=== PATIENT | female | born 1980 | race Caucasian/White ===

== ENCOUNTER 2018-03-25 14:09 | Emergency (ER) | payer BC, SELFPAY ==
[2018-03-25 14:16] VITALS: BP 155/106; PULSE 82; RESP 18; TEMP 37.3; O2SAT 97
--- NOTE | 2018-03-25 15:06 | W.ED.GENAD ---
Discharge Plan Disposition Patient Disposition: HOME Condition: Good Discharge Details Chief Complaint: Orthopedic Clinical Impression: Biceps tendinitis Primary Care Provider: Mayuri Zimmer ED Provider: Marianna Wylie Home Meds and New Rx's Prescriptions: New ibuprofen 600 mg tablet 600 mg PO QID PRN (Reason: pain) Qty: 20 RF: 0 Discharge Instructions Instructions: Tendinitis (ED) Additional Instructions: Encourage hydration. Tylenol and/or ibuprofen as needed for discomfort. You may try Lidoderm or Salonpas patches for discomfort. I have asked our child care group leader to help facilitate follow-up with primary care. Please call orthopedics tomorrow to schedule follow-up appointment, number listed below. Referral for physical therapy as attached, please call to schedule appointment If you develop fever/chills, altered sensatio or the new/worsening symptoms please seek care urgently once again Stand Alone Forms: Physical Therapy Referral, Work Release Referrals: Pancho Osborne MD [ [facility] STAFF PHYSICIAN] - ([phone]) Discharge Data Discharge Date/Time-TO BE ENTERED AT DEPARTURE: 03/25/18 15:27 Medical Decision Making Patient is a 38-year-old right-hand dominant female presenting today with chief complaint of recurrent right shoulder pain. She reports that she initially injured her shoulder approximately 1 year ago. Unclear diagnosis from that time. Denies any trauma. Denies any recent trauma. States that over the past few days she has had worsening severity of her discomfort and symptoms. Indicates the anterior aspect of the shoulder radiating down the right biceps is area of maximal discomfort. She reports she does have very frequent repetitive motions through her work. States that after counting a large amount of money last week at work, the pain is greatly exacerbated. She denies any altered sensation. Has not noted any weakness. Is preferring to hold the shoulder in a abducted position and try to not move the extremity. On exam, patient is full range of motion of the shoulder. Pain is primarily over the biceps tendon with a positive Speed's exam. No indication of rotator cuff involvement. No pain over the AC joint or clavicle. Patient is full range of motion of the elbow, wrist, hand. 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 No rash. Patient I discussed diagnosis of biceps tendinitis. I encouraged gentle range of motion of the shoulder to help prevent adhesive capsulitis. Advised heat or ice to affected area to help with discomfort. We will Place Lidoderm patch and give ibuprofen. Will prescribe ibuprofen that she should take regularly to help with the inflammatory reaction. Advised that she call orthopedics for follow-up. We will also refer her to physical therapy. Patient is new to the area and does not have primary care, I have asked her care according to help facilitate follow-up with primary care physician. We discussed new/worsening symptoms when to seek care urgently once again. All of her questions and concerns were addressed and she is agreement this plan peer HPI General Mode of arrival: ambulatory. Date/Time Provider Initiated Documentation: 03/25/18 14:31. Limitations to Documentation: no limitations. Information obtained by: patient. History of Present Illness 38 year old F presents to the emergency department with the chief complaint of right shoulder pain, described as moderate, with intensity rated at 6. Quality is described as burning, and is localized to the right and upper extremity. Patient reports no radiation. Patient started experiencing this day(s) and it has been constant. Immobilization improves symptom(s), Movement worsens symptoms . Patient notes denies chest pain, cough, fever/chills, rash and shortness of breath. Patient did receive the following treatments prior to arrival, other (tylenol) Related Data Home Medications Medication Instructions Recorded Confirmed ibuprofen 600 mg PO QID PRN #20 tab 03/25/18 Previous Rx's Medication Instructions Recorded ibuprofen 600 mg PO QID PRN #20 tab 03/25/18 General Stated Complaint: Orthopedic ROJELIO: 4 Review of Systems Constitutional Reports as per HPI, Denies chills, Denies fever(s), Denies headache(s) and Denies weakness ENT Denies headache(s) Cardiovascular Reports as per HPI Respiratory Reports as per HPI and Denies cough Musculoskeletal Reports as per HPI and Denies tingling Integumentary/Breasts Reports as per HPI, Denies rash and Denies wounds Neurologic Denies headache(s), Denies tingling and Denies weakness [facility] Social History Smoking/Tobacco Use Status: Current every day Exam Const General: cooperative, healthy appearing, comfortable, no acute distress, well developed and well groomed Nutritional Appearance: average body habitus and well nourished Orientation: alert and awake Resp Effort & Inspection: normal respiratory effort, able to speak in complete sentences and no respiratory distress Cardio Rate: regular rate Rhythm: regular rhythm Skin General skin exam: no rashes or lesions noted Lesions: no lesions Rashes: no rashes Trauma: no lacerations or abrasions Neuro General: alert and awake Cognition: normal cognition Speech: speech normal Gait: normal gait Motor: muscle tone normal throughout Sensory Exam: no sensory deficits noted Extrem General: full ROM, normal capillary refill, no joint enlargement and normal gait Right upper extremity: full ROM, normal capillary refill, no joint enlargement, shoulder/upper arm Details: tenderness Location: other (anteriorly over biceps tendon), normal ROM and other (positive speeks. Negative Neer and Hawkin); no swelling, no crepitus, no deformity and no unusual warmth, elbow/forearm Details: normal to inspection, wrist Details: normal to inspection and hand Details: normal to inspection Psych Appearance: grossly normal and well kempt Mental Status: mental status grossly normal Speech and Movement: speech and movement normal Course Vital Signs Temperature 37.3 C 03/25/18 14:16 Pulse 82 03/25/18 14:16 Respiratory Rate 18 03/25/18 14:16 Blood Pressure 155/106 H 03/25/18 14:16 Pulse Oximetry 97 03/25/18 14:16 Temperature 37.3 C 03/25/18 14:16 Pulse 82 03/25/18 14:16 Respiratory Rate 18 03/25/18 14:16 Respiratory Effort Non-Labored 03/25/18 14:21 Blood Pressure 155/106 H 03/25/18 14:16 Blood Pressure Position Sitting 03/25/18 14:16 Pulse Oximetry 97 03/25/18 14:16 Oxygen Delivery Method Room Air 03/25/18 14:16 Oxygen Flow Rate 0 03/25/18 14:16 Pain Level 6 03/25/18 14:16
--- NOTE | 2018-03-25 15:09 | ED.GENADUL_ITS ---
Discharge Plan Disposition Patient Disposition: HOME Condition: Good Discharge Details Chief Complaint: Orthopedic Clinical Impression: Biceps tendinitis Primary Care Provider: Mayuri Zimmer ED Provider: Marianna Wylie Home Meds and New Rx's Prescriptions: New ibuprofen 600 mg tablet 600 mg PO QID PRN (Reason: pain) Qty: 20 RF: 0 Discharge Instructions Instructions: Tendinitis (ED) Additional Instructions: Encourage hydration. Tylenol and/or ibuprofen as needed for discomfort. You may try Lidoderm or Salonpas patches for discomfort. I have asked our anesthesiologist and critical care to help facilitate follow-up with primary care. Please call orthopedics tomorrow to schedule follow-up appointment, number listed below. Referral for physical therapy as attached, please call to schedule appointment If you develop fever/chills, altered sensatio or the new/worsening symptoms please seek care urgently once again Stand Alone Forms: Physical Therapy Referral, Work Release Referrals: Pancho Osborne MD [ [facility] STAFF PHYSICIAN] - ([phone]) Discharge Data Discharge Date/Time-TO BE ENTERED AT DEPARTURE: 03/25/18 15:27 Medical Decision Making Patient is a 38-year-old right-hand dominant female presenting today with chief complaint of recurrent right shoulder pain. She reports that she initially injured her shoulder approximately 1 year ago. Unclear diagnosis from that time. Denies any trauma. Denies any recent trauma. States that over the past few days she has had worsening severity of her discomfort and symptoms. Indicates the anterior aspect of the shoulder radiating down the right biceps is area of maximal discomfort. She reports she does have very frequent repetitive motions through her work. States that after counting a large amount of money last week at work, the pain is greatly exacerbated. She denies any altered sensation. Has not noted any weakness. Is preferring to hold the shoulder in a abducted position and try to not move the extremity. On exam, patient is full range of motion of the shoulder. Pain is primarily over the biceps tendon with a positive Speed's exam. No indication of rotator cuff involvement. No pain over the AC joint or clavicle. Patient is full range of motion of the elbow, wrist, hand. 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 No rash. Patient I discussed diagnosis of biceps tendinitis. I encouraged gentle range of motion of the shoulder to help prevent adhesive capsulitis. Advised heat or ice to affected area to help with discomfort. We will Place Lidoderm patch and give ibuprofen. Will prescribe ibuprofen that she should take regularly to help with the inflammatory reaction. Advised that she call orthopedics for follow- up. We will also refer her to physical therapy. Patient is new to the area and does not have primary care, I have asked her care according to help facilitate follow-up with primary care physician. We discussed new/worsening symptoms when to seek care urgently once again. All of her questions and concerns were addressed and she is agreement this plan peer HPI General Mode of arrival: ambulatory . Date/Time Provider Initiated Documentation: 03/25/18 14:31 . Limitations to Documentation: no limitations . Information obtained by: patient . History of Present Illness 38 year old F presents to the emergency department with the chief complaint of right shoulder pain, described as moderate, with intensity rated at 6. Quality is described as burning, and is localized to the right and upper extremity. Patient reports no radiation. Patient started experiencing this day(s) and it has been constant. Immobilization improves symptom(s), Movement worsens symptoms . Patient notes denies chest pain, cough, fever/chills, rash and shortness of breath. Patient did receive the following treatments prior to arrival, other (tylenol) Related Data Home Medications Medication Instructions Recorded Confirmed ibuprofen 600 mg PO QID PRN #20 tab 03/25/18 Previous Rx's Medication Instructions Recorded ibuprofen 600 mg PO QID PRN #20 tab 03/25/18 General Stated Complaint: Orthopedic ROJELIO: 4 Review of Systems Constitutional Reports as per HPI, Denies chills, Denies fever(s), Denies headache(s) and Denies weakness ENT Denies headache(s) Cardiovascular Reports as per HPI Respiratory Reports as per HPI and Denies cough Musculoskeletal Reports as per HPI and Denies tingling Integumentary/Breasts Reports as per HPI, Denies rash and Denies wounds Neurologic Denies headache(s), Denies tingling and Denies weakness [facility] Social History Smoking/Tobacco Use Status: Current every day Exam Const General: cooperative, healthy appearing, comfortable, no acute distress, well developed and well groomed Nutritional Appearance: average body habitus and well nourished Orientation: alert and awake Resp Effort & Inspection: normal respiratory effort, able to speak in complete sentences and no respiratory distress Cardio Rate: regular rate Rhythm: regular rhythm Skin General skin exam: no rashes or lesions noted Lesions: no lesions Rashes: no rashes Trauma: no lacerations or abrasions Neuro General: alert and awake Cognition: normal cognition Speech: speech normal Gait: normal gait Motor: muscle tone normal throughout Sensory Exam: no sensory deficits noted Extrem General: full ROM, normal capillary refill, no joint enlargement and normal gait Right upper extremity: full ROM, normal capillary refill, no joint enlargement, shoulder/upper arm Details: tenderness Location: other (anteriorly over biceps tendon), normal ROM and other (positive speeks. Negative Neer and Hawkin); no swelling, no crepitus, no deformity and no unusual warmth, elbow/forearm Details: normal to inspection, wrist Details: normal to inspection and hand Details: normal to inspection Psych Appearance: grossly normal and well kempt Mental Status: mental status grossly normal Speech and Movement: speech and movement normal Course Vital Signs Temperature 37.3 C 03/25/18 14:16 Pulse 82 03/25/18 14:16 Respiratory Rate 18 03/25/18 14:16 Blood Pressure 155/106 H 03/25/18 14:16 Pulse Oximetry 97 03/25/18 14:16 Temperature 37.3 C 03/25/18 14:16 Pulse 82 03/25/18 14:16 Respiratory Rate 18 03/25/18 14:16 Respiratory Effort Non-Labored 03/25/18 14:21 Blood Pressure 155/106 H 03/25/18 14:16 Blood Pressure Position Sitting 03/25/18 14:16 Pulse Oximetry 97 03/25/18 14:16 Oxygen Delivery Method Room Air 03/25/18 14:16 Oxygen Flow Rate 0 03/25/18 14:16 Pain Level 6 03/25/18 14:16
[2018-03-25] MEDS: Ibuprofen 600 MG TAB PO (15:16)
[2018-03-25] MEDS: Lidocaine 5% Patch 1 PATCH (15:16)
[2018-03-25 15:23] VITALS: BP 155/106; PULSE 82; RESP 18; TEMP 37.3; O2SAT 97
== END 2018-03-25 15:27 | disposition home or self-care (01) ==
PROVIDERS: Emergency Provider Physician Assistant; PCP Nurse Practitioner
DX: M75.21 Bicipital tendinitis, right shoulder (principal)
CPT/HCPCS: 99283

== ENCOUNTER 2018-11-22 13:49 | Outpatient (CLI) | payer BC, SELFPAY ==
[2018-11-22 14:33] LABS: Abs Immature Grans 0.04 k/cumm (0.0-0.09); Absolute Basophil Count 0.02 k/cumm (0.0-0.2); Absolute Eosinophil Count 0.14 k/cumm (0.0-0.7); Absolute Lymphocyte Count 2.52 k/cumm (1.2-3.4); Absolute Monocyte Count 0.63 k/cumm (0.11-0.7); Absolute Neutrophil Count 7.04 k/cumm (1.2-6.7); Basophils % 0.2; Eosinophils % 1.3; HCT 42.6 % (36.0-46.0); HGB 15.1 g/dL (12.0-15.5); Immature Grans % 0.4; Lymphocytes % 24.3; Mean Corp. HGB Concentration 35.4 g/dL (32.0-36.0); Mean Corpuscular Hemoglobin 32.3 pg (27.0-33.0); Mean Corpuscular Volume 91.2 fL (80-95); Mean Platelet Volume 8.9 fL (8.0-11.0); Monocytes % 6.1; Neutrophils % 67.7; Platelet Count 381 x1000/uL (130-400); RBC 4.67 m/cumm (4.00-5.20); RBC Distribution Width 11.9 % (11.7-14.6); White Blood Cell Count 10.39 k/cumm (4.4-10.8)
[2018-11-22 15:32] LABS: *AMPHETAMINES SCREEN URINE Negative (Negative); *BARBITURATES SCREEN URINE Negative (Negative); *BENZODIAZEPINES SCREEN URINE Negative (Negative); Cannabinoids THC POSITIVE (Negative); Cocaine Screen,Urine Negative (Negative); METHADONE URINE SCREEN Negative (Negative); OPIATES URINE SCREEN Negative (Negative)
[2018-11-22 15:39] LABS: ALT 26 U/L (12-78); AST 16 U/L (15-37); Albumin 3.7 g/dL (3.4-5.0); Alkaline Phosphatase 59 U/L (46-116); Anion Gap 12.5 mmol/L (3-11); BUN 7 mg/dL (7-18); Bilirubin, Total 0.5 mg/dL (0.2-1.0); CO2 23.5 mmol/L (21.0-32.0); CREATININE 0.66 mg/dL (0.55-1.02); Calcium 8.9 mg/dL (8.5-10.1); Chloride 104 mmol/L (98-107); Glucose 75 mg/dL (70-100); Potassium 3.7 mmol/L (3.5-5.1); Sodium 140 mmol/L (136-145); TSH (W/Ref FT4) 3.01 uIU/mL (0.36-3.74); Total Protein 6.8 g/dL (6.4-8.2)
[2018-11-22 15:39] LABS: Tricyclic Antidepressants Negative (Negative)
[2018-11-23 10:43] LABS: HIV-1/2 Ag & Ab Screen Negative (NEGAT); Hepatitis C Ab w Rflx HCV PCR Negative (NEGAT)
[2018-11-23 11:32] LABS: Syphilis Serology (RPR) Negative (Negative); Varicella IgG Antibody Positive
[2018-11-23 12:49] LABS: Hepatitis B Surface Ag Negative (NEGAT)
[2018-11-23 13:43] LABS: Rubella IgG Ab (UVM) Equivocal
== END 2018-11-22 14:09 ==
PROVIDERS: PCP Nurse Practitioner; Visit Provider Obstetrics & Gynecology
DX: O10.911 Unspecified pre-existing hypertension complicating pregnancy, first trimester
CPT/HCPCS: 36415; 80053; 80055; 80307; 86787; 86803; 86850; 86900; 86901; 87340; 87389; 84443; 86592; 86762; 87086

== ENCOUNTER 2018-12-09 15:21 | Outpatient (REF) | payer BC, SELFPAY ==
--- NOTE | 2018-12-09 14:40 | PAPFT_PTH ---
PATIENT: Argenis Rivera LOC: [facility] U#:[id number] AGE/SX: 38/F ROOM: RE12/09/[address]: Joe Jurado MD : 1980 BED: DIS: 12/09/2018 SPEC #: [id number] RECD: 12/09/18 18:03 STATUS: SHARRI REAngeline #: [id number] LATASHA: 12/09/18 14:[address]: Joe Jurado DEPT: COUNT INCLUDES THE [facility] Cytology RECD BY: Ciarra Ge ENTERED: 12/09/18 18:03 SP TYPE: PAPFT OTHR DR: Mayuri Zimmer Tissues: 1 - CX/ENDOCX FOR PAP SMEARS Procedures: PAP THIN PREP/UVM Screening HPV DNA PROBE Comments: [id number]
[2018-12-13 13:01] LABS: Chlamydia Result Negative; GC Result Negative; Specimen Description CERVIX
== END 2018-12-09 15:41 ==
LOC: LBN 15:21
PROVIDERS: PCP Nurse Practitioner; Visit Provider Obstetrics & Gynecology
DX: Z34.90 Encounter for supervision of normal pregnancy, unspecified, unspecified trimester (principal); Z12.4 Encounter for screening for malignant neoplasm of cervix; Z11.51 Encounter for screening for human papillomavirus (HPV)
CPT/HCPCS: 87491; 87591; 88142; 87624

== ENCOUNTER 2019-01-07 00:26 | Outpatient (CLI) | payer BC, SELFPAY ==
--- NOTE | 2019-01-07 14:06 | DI.US_ITS ---
APPROVED REPORT EXAM: Comprehensive 2D, Doppler, and color-flow Echocardiogram Patient Location: Out-Patient Custom Frame Assembler: NGOZI Lindsey (AE) Rhythm: NSR Indications: systolic murmur RSB, CHTN in . murmur cardiac r01.1 o16.9 hypertension affectin g Left Ventricle LV EF est to be 65-70% mild LVH. NWMA. no significant provocable obstrucitons The left ventricular sy stolic function is normal. The left ventricular ejection fraction is within the normal range. There i s normal left ventricular wall thickness. There is normal LV segmental wall motion. The left ventricu lar diastolic function is normal. 65 to 70% Right Ventricle RV is generous in size. function is normal . The right ventricular systolic function is normal. Unabl e to estimate RVSP Atria The left atrium size is normal. normal Aortic Valve Likely bicuspid valve with fusion of right and left cusp. Mildly sclerotic. There is mild aortic valv e stenosis Trace to mild aortic regurgitation. Mitral Valve mitral valve opens well. Trace mitral regurgitation. Tricuspid Valve normal valve. Trace to mild tricuspid regurgitation. Pulmonic Valve Trace pulmonic valve regurgitation. Great Vessels The aortic root is normal in size. the ascending aorta is dilated at 4.1cm normal in size. collapses more than 50%. lots of IVC flow. Pericardium There is no pericardial effusion. 2D Dimensions IVSd 1.2 cm F: 0.6-1.0 LA Volume Index A4C 40.0 mL/m2 PWd 1.2 cm F: 0.6 - 1.0 LA Area A4C 23.0 cm2 LVDd 5.0 cm F: 3.9 - 5.3 LVDs 3.1 cm F: 2.2 - 3.5 Aortic Root 3.3 cm F: 2.7 - 3.3 Left Atrium 4.0 cm F: 2.7 - 3.8 LVOT 2.3 cm (M/F) 1.5-2.5 Ascending Aorta 4.2 cm F: 2.3 - 3.1 LVEF (Long's) 71.5 % F: 54 - 74 FS 37.9 % LV Diastology E Decel Time 198.0 (160-240 msec) E/A Ratio 1.2 MED E' 0.1 (<0.07 m/s) LV E/e MED 10.1 (>14) LAT E' 0.1 (<0.1 m/s) LV E/e LAT 7.1 (>14) Aortic Valve LVOT Peak Michael. 1.3 m/s LVOT Peak Gr. 6.5 mmHg LVOT Mean Gr. 4.3 mmHg LVOT VTI 0.3 m AO Peak GR. 21.0 mmHg AO Mean GR. 12.0 (<5 mmHg) EDIL (VTI) 2.5 (2.5-4.5 cm2) EDIL (VTI) Index 1.2 cm/m2 Mitral Valve MV A Velocity 0.6 (0.4-1.3 m/s) E/A Ratio 1.2 MV Decel. Time 197.9 (160-240 msec) MV PHT 57.4 msec MVA PHT 3.8 cm2 Pulmonary Valve NY End VMAX 73.8 cm/s Conclusion Left Ventricle : LV EF estimated to be 65-70%. The left ventricular systolic function is normal. The left ventricular ejection fraction is within the normal range. There is normal LV segmental wall parisa on. The left ventricular diastolic function is normal. Right Ventricle : The right ventricular systolic function is normal. There is not enough tricuspid r egurgitation to estimate RVSP Atria : Both atria are normal in size Aortic Valve : Likely bicuspid valve with fusion of right and left cusp. Mildly sclerotic. Trace to mild aortic regurgitation. There is mild aortic valve stenosis Mitral Valve : mitral valve opens well. There is trace mitral regurgitation Tricuspid Valve : normal valve. Trace to mild tricuspid regurgitation. Great Vessels : The aortic root is normal in size. The ascending aorta is dilated at 4.1cm normal in size. The IVC collapses more than 50%. Pericardium : There is no pericardial effusion. Summary: This patient has a likely bicuspid aortic valve with mild stenosis, and an enlarged ascendin g aorta. The remainder of the echocardiogram is grossly normal.
== END 2019-01-07 00:46 ==
PROVIDERS: PCP Nurse Practitioner; Visit Provider Obstetrics & Gynecology
DX: O16.2 Unspecified maternal hypertension, second trimester (principal); R01.1 Cardiac murmur, unspecified; I35.0 Nonrheumatic aortic (valve) stenosis; I35.8 Other nonrheumatic aortic valve disorders
CPT/HCPCS: 93306

== ENCOUNTER 2019-01-28 06:52 | Outpatient (CLI) | payer BC, SELFPAY ==
--- NOTE | 2019-01-28 15:11 | DI.US_ITS ---
EXAM: US BREAST RT LIMITED CLINICAL HISTORY: Evaluate right breast lump TECHNIQUE: Ultrasound performed using standard protocol. COMPARISON: US ECHOCARDIOGRAM from 01/07/2019 FINDINGS: Breast ultrasound was performed to evaluate a palpable area abnormality of the right breast, this is in the 9 o'clock position approximately 7 cm from the nipple. Ultrasound of this area shows an area of what appears to be breast tissue but with a slightly lower echogenicity than surrounding breast ti ssue, particularly on harmonic scanning. Question slightly increased vascular flow to this area. No definite mass. No cyst. No abscess. No other findings in the breast. IMPRESSION: There is an approximately 3 x 2 x 1 cm in diameter area corresponding to the patient's palpable abnor mality, which essentially has characteristics of normal breast tissue, but there is slightly decrease d echogenicity in this area with a geographic appearance; the possibility of a mass is not entirely e xcluded. Appropriate clinical and ultrasound followup recommended. If the findings persist or worsen , biopsy could be considered.
== END 2019-01-28 07:12 ==
PROVIDERS: PCP Nurse Practitioner; Visit Provider Obstetrics & Gynecology
DX: N63.11 Unspecified lump in the right breast, upper outer quadrant (principal)
CPT/HCPCS: 76642

== ENCOUNTER 2019-02-14 12:18 | Outpatient (CLI) | payer BC, SELFPAY ==
[2019-02-14 12:44] LABS: HCT 36.9 % (36.0-46.0); HGB 12.8 g/dL (12.0-15.5); Mean Corp. HGB Concentration 34.7 g/dL (32.0-36.0); Mean Corpuscular Hemoglobin 30.3 pg (27.0-33.0); Mean Corpuscular Volume 87.2 fL (80-95); Mean Platelet Volume 8.4 fL (8.0-11.0); Platelet Count 324 x1000/uL (130-400); RBC 4.23 m/cumm (4.00-5.20); RBC Distribution Width 12.4 % (11.7-14.6); White Blood Cell Count 10.11 k/cumm (4.4-10.8)
[2019-02-14 13:45] LABS: ALT 13 U/L (14-59); AST 11 U/L (15-37); Albumin 3.2 g/dL (3.4-5.0); Alkaline Phosphatase 60 U/L (46-116); Anion Gap 11.9 mmol/L (3-11); BUN 5 mg/dL (7-18); Bilirubin, Total 0.4 mg/dL (0.2-1.0); CO2 22.1 mmol/L (21.0-32.0); CREATININE 0.47 mg/dL (0.55-1.02); Calcium 8.8 mg/dL (8.5-10.1); Chloride 104 mmol/L (98-107); Glucose 74 mg/dL (70-100); Potassium 4.3 mmol/L (3.5-5.1); Sodium 138 mmol/L (136-145); Total Protein 6.5 g/dL (6.4-8.2)
== END 2019-02-14 12:38 ==
PROVIDERS: PCP Nurse Practitioner; Visit Provider Obstetrics & Gynecology Gynecology
DX: R51 Headache (principal)
CPT/HCPCS: 36415; 80053; 85027

== ENCOUNTER 2019-02-23 00:40 | Outpatient (CLI) | payer BC, SELFPAY ==
--- NOTE | 2019-02-23 08:53 | DI.US_ITS ---
EXAM: US OB 2-3 TRIMESTER CLINICAL HISTORY: . Maternal bicuspid valve Z34.90 SUPERVISION NORMAL TECHNIQUE: Ultrasound performed using standard protocol. FINDINGS: The fetus is in breech position. The placenta is anterior. The biometric measurements correspond t o 20 weeks 4 days, consistent with predicted gestational age. No abnormalities are seen. The amniotic fluid appears visually normal. IMPRESSION: survey is within the normal range.
== END 2019-02-23 01:00 ==
PROVIDERS: PCP Nurse Practitioner; Visit Provider Obstetrics & Gynecology
DX: Z34.92 Encounter for supervision of normal pregnancy, unspecified, second trimester (principal)
CPT/HCPCS: 76805

== ENCOUNTER 2019-04-13 02:14 | Outpatient (CLI) | payer BC, SELFPAY ==
--- NOTE | 2019-04-13 10:22 | DI.US_ITS ---
EXAM: US BREAST RT LIMITED CLINICAL HISTORY: f/u from US done 01/28/19 for mass N63.10 LUMP RT BREAST TECHNIQUE: Ultrasound performed using standard protocol. COMPARISON: US BREAST RT LIMITED from 01/28/2019 FINDINGS: There has been interval increase in size of the previously noted mass, now measuring 4 x 1.9 x 4.8 c m. It is circumscribed and is mildly hyperechoic relative to breast tissue and shows increased blood flow. There is no shadowing. 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 IMPRESSION: Category 3, probably benign mass in the 9 o'clock position of the right breast. A six-month follow- up is recommended.
== END 2019-04-13 02:34 ==
PROVIDERS: PCP Nurse Practitioner; Visit Provider Surgery
DX: N63.11 Unspecified lump in the right breast, upper outer quadrant (principal); D24.1 Benign neoplasm of right breast
CPT/HCPCS: 76642

== ENCOUNTER 2019-04-29 09:21 | Outpatient (CLI) | payer BC, SELFPAY ==
[2019-04-29 14:43] LABS: Abs Immature Grans 0.05 k/cumm (0.0-0.09); Absolute Basophil Count 0.01 k/cumm (0.0-0.2); Absolute Eosinophil Count 0.13 k/cumm (0.0-0.7); Absolute Lymphocyte Count 1.85 k/cumm (1.2-3.4); Absolute Monocyte Count 0.55 k/cumm (0.11-0.7); Absolute Neutrophil Count 8.33 k/cumm (1.2-6.7); Basophils % 0.1; Eosinophils % 1.2; HCT 34.8 % (36.0-46.0); Immature Grans % 0.5 %; Lymphocytes % 16.9; Mean Corp. HGB Concentration 34.5 g/dL (32.0-36.0); Mean Corpuscular Hemoglobin 29.9 pg (27.0-33.0); Mean Corpuscular Volume 86.8 fL (80-95); Mean Platelet Volume 8.4 fL (8.0-11.0); Neutrophils % 76.3; Platelet Count 271 x1000/uL (130-400); RBC 4.01 m/cumm (4.00-5.20); White Blood Cell Count 10.92 k/cumm (4.4-10.8)
[2019-04-29 14:54] LABS: Glucose,1 Hr (Glucola) 122 mg/dL (80-140)
[2019-05-05 14:54] LABS: Cyclobenzaprine (Flexeril) <10 ng/mL (10 - 30)
== END 2019-04-29 09:41 ==
PROVIDERS: Obstetrics & Gynecology; PCP Nurse Practitioner; Visit Provider Internal Medicine Nephrology
DX: Z34.92 Encounter for supervision of normal pregnancy, unspecified, second trimester (principal); M79.10 Myalgia, unspecified site; Z51.81 Encounter for therapeutic drug level monitoring
CPT/HCPCS: 36415; 80369; 82950; 85025

== ENCOUNTER 2019-05-13 02:06 | Outpatient (CLI) | payer BC, SELFPAY ==
--- NOTE | 2019-05-13 14:22 | DI.US_ITS ---
EXAM: US OB BAR WEIGHT CLINICAL HISTORY: ADVANCED MATERNAL AGE, MARGINAL CORD INSERTION, Z34.90 TECHNIQUE: Ultrasound was performed utilizing 3rd trimester protocol. COMPARISON: US BREAST RT LIMITED from 04/13/2019 FINDINGS: biometry is consistent with gestational age of 31 weeks 4 days and EDC of 07/11/2019. The estimated weight is 1804 grams, which is at 27th percentile for predicted gestational age. The femur length is in the 5th percentile for predicted gestational age. Placenta is anterior with no evidence of placenta previa. Visually normal amniotic fluid, the BAR is 16. Fetus is in cephalic presentation. cardiac rate 132 BPM.
== END 2019-05-13 02:26 ==
PROVIDERS: PCP Nurse Practitioner; Visit Provider Obstetrics & Gynecology Gynecology
DX: Z3A.31 31 weeks gestation of pregnancy; O09.523 Supervision of elderly multigravida, third trimester
CPT/HCPCS: 76816

== ENCOUNTER 2019-05-30 10:53 | Outpatient (CLI) | payer BC, SELFPAY | END 2019-05-30 11:13 | PROVIDERS: PCP Nurse Practitioner; Referring Provider Obstetrics & Gynecology; Visit Provider Obstetrics & Gynecology | DX: O10.03 Pre-existing essential hypertension complicating the puerperium (principal); Z3A.34 34 weeks gestation of pregnancy | CPT/HCPCS: 59025 ==

== ENCOUNTER 2019-06-01 09:12 | Outpatient (CLI) | payer BC, SELFPAY | END 2019-06-01 09:32 | PROVIDERS: PCP Nurse Practitioner; Visit Provider Obstetrics & Gynecology | DX: O13.3 Gestational [pregnancy-induced] hypertension without significant proteinuria, third trimester (principal); Z3A.34 34 weeks gestation of pregnancy | CPT/HCPCS: 59025 ==

== ENCOUNTER 2019-06-09 12:39 | Outpatient (CLI) | payer BC, SELFPAY | END 2019-06-09 12:59 | PROVIDERS: PCP Nurse Practitioner; Visit Provider Obstetrics & Gynecology | DX: Z3A.36 36 weeks gestation of pregnancy; O13.3 Gestational [pregnancy-induced] hypertension without significant proteinuria, third trimester | CPT/HCPCS: 59025 ==

== ENCOUNTER 2019-06-09 16:17 | Outpatient (REF) | payer BC, SELFPAY ==
[2019-06-09 17:30] LABS: *AMPHETAMINES SCREEN URINE Negative (Negative); *BARBITURATES SCREEN URINE Negative (Negative); *BENZODIAZEPINES SCREEN URINE Negative (Negative); Cannabinoids THC POSITIVE (Negative); Cocaine Screen,Urine Negative (Negative); METHADONE URINE SCREEN Negative (Negative); OPIATES URINE SCREEN Negative (Negative)
[2019-06-09 17:31] LABS: Tricyclic Antidepressants Negative (Negative)
[2019-06-15 12:26] LABS: Buprenorphine Negative
== END 2019-06-09 16:37 ==
LOC: LBN 16:17
PROVIDERS: PCP Nurse Practitioner; Visit Provider Obstetrics & Gynecology
DX: Z34.93 Encounter for supervision of normal pregnancy, unspecified, third trimester (principal)
CPT/HCPCS: 80307; 87081

== ENCOUNTER 2019-06-16 16:59 | Outpatient (CLI) | payer BC, SELFPAY | END 2019-06-16 17:19 | PROVIDERS: PCP Nurse Practitioner; Visit Provider Obstetrics & Gynecology | DX: O10.03 Pre-existing essential hypertension complicating the puerperium (principal); Z3A.35 35 weeks gestation of pregnancy | CPT/HCPCS: 59025 ==

== ENCOUNTER 2019-06-23 13:10 | Outpatient (CLI) | payer BC, SELFPAY | END 2019-06-23 13:30 | PROVIDERS: PCP Nurse Practitioner; Visit Provider Obstetrics & Gynecology | DX: Z3A.36 36 weeks gestation of pregnancy; O13.3 Gestational [pregnancy-induced] hypertension without significant proteinuria, third trimester | CPT/HCPCS: 59025 ==

== ENCOUNTER 2019-06-24 02:27 | Outpatient (CLI) | payer BC, SELFPAY ==
--- NOTE | 2019-06-24 13:00 | DI.US_ITS ---
EXAM: US OB BAR WEIGHT CLINICAL HISTORY: CHRONIC HTN, AMA, TOBACCO USE O10.919, Z72.0, GROWTH AND FLUID TECHNIQUE: OB ultrasound was performed utilizing 3rd trimester protocol. COMPARISON: No exams were available for comparison FINDINGS: biometry is consistent with gestational age of 35 weeks 5 days and EDC of 07/24/2019. The jeanie mated weight is 2857 grams, which is at the 18th percentile for predicted gestational age. Fem ur length is 3rd percentile and head circumference is in 5th percentile for gestational age. Placenta is anterior with no placenta previa. There is visually a normal quantity of amniotic fluid and the BAR is 15. Fetus is in cephalic presentation. heart rate is 133 BPM. Umbilical artery Doppler evaluation shows all values in the 50th to 90th percentile range, no abnorma lity is suggested at this time. DATA REPOSITORY:
== END 2019-06-24 02:47 ==
PROVIDERS: PCP Nurse Practitioner; Visit Provider Obstetrics & Gynecology Gynecology
DX: O10.913 Unspecified pre-existing hypertension complicating pregnancy, third trimester (principal); O09.523 Supervision of elderly multigravida, third trimester; O99.333 Smoking (tobacco) complicating pregnancy, third trimester; Z3A.35 35 weeks gestation of pregnancy
CPT/HCPCS: 76816

== ENCOUNTER 2019-06-28 07:55 | Outpatient (CLI) | payer BC, SELFPAY | END 2019-06-28 08:15 | PROVIDERS: PCP Nurse Practitioner; Visit Provider Obstetrics & Gynecology Gynecology | DX: O10.013 Pre-existing essential hypertension complicating pregnancy, third trimester (principal); Z3A.38 38 weeks gestation of pregnancy | CPT/HCPCS: 59025 ==

== ENCOUNTER 2019-06-28 11:17 | Outpatient (CLI) | payer BC, SELFPAY ==
[2019-06-28 11:26] LABS: HCT 38.9 % (36.0-46.0); HGB 13.6 g/dL (12.0-15.5); Mean Corpuscular Hemoglobin 30.1 pg (27.0-33.0); Mean Corpuscular Volume 86.1 fL (80-95); Mean Platelet Volume 8.5 fL (8.0-11.0); Platelet Count 272 x1000/uL (130-400); RBC 4.52 m/cumm (4.00-5.20); RBC Distribution Width 13.7 % (11.7-14.6); White Blood Cell Count 11.65 k/cumm (4.4-10.8)
[2019-06-28 12:41] LABS: ALT 8 U/L (14-59); AST 10 U/L (15-37); Albumin 2.7 g/dL (3.4-5.0); Alkaline Phosphatase 141 U/L (46-116); Anion Gap 9.5 mmol/L (3-11); BUN 7 mg/dL (7-18); Bilirubin, Total 0.3 mg/dL (0.2-1.0); CO2 25.5 mmol/L (21.0-32.0); CREATININE 0.62 mg/dL (0.55-1.02); Calcium 8.3 mg/dL (8.5-10.1); Chloride 104 mmol/L (98-107); Glucose 71 mg/dL (74-106); Potassium 4.3 mmol/L (3.5-5.1); Sodium 139 mmol/L (136-145)
== END 2019-06-28 11:37 ==
PROVIDERS: PCP Nurse Practitioner; Visit Provider Obstetrics & Gynecology
DX: O10.913 Unspecified pre-existing hypertension complicating pregnancy, third trimester (principal)
CPT/HCPCS: 36415; 80053; 85027

== ENCOUNTER 2019-07-01 09:37 | Inpatient (IN) | payer BC, SELFPAY ==
[2019-07-01 10:24] LABS: HCT 39.2 % (36.0-46.0); HGB 13.5 g/dL (12.0-15.5); Mean Corp. HGB Concentration 34.4 g/dL (32.0-36.0); Mean Corpuscular Hemoglobin 29.5 pg (27.0-33.0); Mean Corpuscular Volume 85.8 fL (80-95); Mean Platelet Volume 8.7 fL (8.0-11.0); Platelet Count 258 x1000/uL (130-400); RBC 4.57 m/cumm (4.00-5.20); RBC Distribution Width 13.8 % (11.7-14.6); White Blood Cell Count 10.57 k/cumm (4.4-10.8)
[2019-07-01] MEDS: Albuterol HFA 8 GM 60 PUFF INH IH (11:34)
[2019-07-01] MEDS: Nicotine 21 MG/24 HR PATCH TD (11:36)
[2019-07-01] MEDS: Lactated Ringers 1,000 ML 120 ML IV (11:37)
[2019-07-01] MEDS: Ibuprofen 600 MG TAB PO (19:50)
[2019-07-01] MEDS: Hamamelis Leaf/Glycerin 100 EACH BOX PR (20:00)
[2019-07-01] MEDS: Budesonide/Formoterol 80/4.5 6.9 GM 60 PUFF INH IH (20:00)
[2019-07-02] MEDS: Acetaminophen 325 MG TAB 650 MG PO ×2 (05:30→22:08)
[2019-07-02] MEDS: Ibuprofen 600 MG TAB PO ×3 (05:30→22:08)
[2019-07-02] MEDS: Sertraline 50 MG TAB 100 MG PO (08:39)
[2019-07-02] MEDS: Budesonide/Formoterol 80/4.5 6.9 GM 60 PUFF INH IH ×2 (08:40→20:00)
[2019-07-02] MEDS: Nicotine 21 MG/24 HR PATCH TD (13:18)
[2019-07-02] MEDS: hydroCHLOROthiazide 25 MG TAB PO (22:08)
[2019-07-03] MEDS: Nicotine 21 MG/24 HR PATCH TD (09:14)
[2019-07-03] MEDS: Acetaminophen 325 MG TAB 650 MG PO (09:15)
[2019-07-03] MEDS: Sertraline 50 MG TAB 100 MG PO (09:15)
[2019-07-03] MEDS: Ibuprofen 600 MG TAB PO ×2 (09:15→13:05)
[2019-07-03] MEDS: Docusate Sodium 100 MG CAP PO (09:16)
[2019-07-03] MEDS: Budesonide/Formoterol 80/4.5 6.9 GM 60 PUFF INH IH (11:22)
[2019-07-03] MEDS: Metoprolol CR 25 MG TABCR 12.5 MG PO ×2 (12:08→15:13)
== END 2019-07-03 15:30 | disposition home or self-care (01) | DRG 807 ==
PROVIDERS: Admitting Provider Obstetrics & Gynecology Gynecology; PCP Nurse Practitioner; Visit Provider Obstetrics & Gynecology Gynecology
DX: O10.013 Pre-existing essential hypertension complicating pregnancy, third trimester (principal); Z37.0 Single live birth; O76 Abnormality in fetal heart rate and rhythm complicating labor and delivery; Z3A.39 39 weeks gestation of pregnancy; O70.1 Second degree perineal laceration during delivery; O99.334 Smoking (tobacco) complicating childbirth; O99.52 Diseases of the respiratory system complicating childbirth; O99.344 Other mental disorders complicating childbirth; F17.210 Nicotine dependence, cigarettes, uncomplicated; F41.8 Other specified anxiety disorders; J45.909 Unspecified asthma, uncomplicated
CPT/HCPCS: 36415; 85027; 86850; 86900; 86901; J3490

== ENCOUNTER 2019-08-25 18:49 | Outpatient (CLI) | payer BC, SELFPAY | END 2019-08-25 19:09 | PROVIDERS: PCP Nurse Practitioner; Visit Provider Obstetrics & Gynecology | DX: Z39.1 Encounter for care and examination of lactating mother (principal) ==

== ENCOUNTER 2023-08-27 08:17 | Outpatient (CLI) | payer MEDICAID, SELFPAY ==
[2023-08-27 07:54] LABS: HCT 45.6 % (36.0-46.0); HGB 15.5 g/dL (11.2-15.7); MCV 88 fL (80-95); MPV 8.5 fL (8.0-11.0); Platelet Count 294 10^3/uL (130-400); RBC 5.17 10^6/uL (3.93-5.22); RDW 12.5 % (11.7-14.6); RDW-SD 40.9 fL; WBC 6.47 10^3/uL (4.4-10.8)
[2023-08-27 08:08] LABS: Hemoglobin A1C 5.1 % (<5.7)
[2023-08-27 08:30] LABS: ALT 19 U/L (14-59); AST 15 U/L (15-37); Albumin 3.8 g/dL (3.4-5.0); Alkaline Phosphatase 84 U/L (46-116); Anion Gap 3.5 mmol/L (3-11); BUN 12 mg/dL (7-18); Bilirubin, Total 0.5 mg/dL (0.2-1.0); CO2 26.5 mmol/L (21.0-32.0); CREATININE 0.8 mg/dL (0.55-1.02); Calcium 8.9 mg/dL (8.5-10.1); Calculated LDL 123 mg/dL (<100); Chloride 106 mmol/L (98-107); Cholesterol 182 mg/dL (<200); Estimated GFR 92.54 (mL/min/1.73m2); Glucose 109 mg/dL (74-106); HDL Cholesterol 47 mg/dL (40-60); Potassium 4.2 mmol/L (3.5-5.1); Sodium 136 mmol/L (136-145); TSH 1.25 uIU/Ml (0.36-3.74); Total Protein 7.1 g/dL (6.4-8.2); Triglyceride 64 mg/dL (<150)
== END 2023-08-27 08:18 | disposition home or self-care (01) ==
LOC: LBO 08:17
PROVIDERS: PCP Nurse Practitioner; Visit Provider Physician Assistant
DX: Z79.899 Other long term (current) drug therapy (principal); R53.83 Other fatigue; J45.40 Moderate persistent asthma, uncomplicated
CPT/HCPCS: 36415; 80053; 80061; 85027; 83036; 84443

== ENCOUNTER → 2023-09-30 17:00 | Outpatient (CLI) | payer MEDICAID, SELFPAY ==
--- NOTE | 2023-09-30 | DI.RAD_ITS ---
Exam(s) XR KNEE LT 3V AP,LAT,CORAL EXAM: XR KNEE LT 3V AP,LAT,CORAL CLINICAL HISTORY: Pain in left knee. TECHNIQUE: 2D digital imaging was performed of the left knee. Three images were obtained. AP, late ral and PA tunnel views were obtained. COMPARISON: No exams were available for comparison FINDINGS: BONES: No acute fracture is present. No bony destructive lesion is seen. JOINTS: The knee is normally aligned. There is a small joint effusion. No loose body. SOFT TISSUE: Normal. IMPRESSION: Small joint effusion. DATA REPOSITORY: RADIATION DOSE DELIVERED:
--- NOTE | 2023-09-30 18:02 | DI.VRAD_ITS ---
PROCEDURE INFORMATION: Exam: XR Left Knee Exam date and time: 09/30/2023 5:22 PM Age: 43 years old Clinical indication: Other: Pain lt TECHNIQUE: Imaging protocol: Radiologic exam of the left knee. Views: 3 views. COMPARISON: No relevant prior studies available. FINDINGS: Bones/joints: Possible very mild patella sonia versus projectional artifact. No acute fracture and no mary lou dislocation. Soft tissues: Unremarkable. IMPRESSION: Possible very mild patella sonia versus projectional artifact. Dictated and Authenticated by: Dee Dee Solis MD. Ordering:SHAMAR Curtis MD
== END ==
LOC: LBN 17:17 → DI 17:19
PROVIDERS: PCP Physician Assistant; Visit Provider Physician Assistant Medical
DX: M25.562 Pain in left knee (principal)
CPT/HCPCS: 73562

== ENCOUNTER 2024-12-29 16:04 | Outpatient (CLI) | payer BC, SELFPAY ==
[2024-12-29 16:22] LABS: TSH (W/Ref FT4) 2.05 uIU/mL (0.36-3.74)
[2024-12-30 18:10] LABS: FSH 34.1 mIU/mL (See Note)
== END 2024-12-29 16:05 | disposition home or self-care (01) ==
LOC: LBO 16:04
PROVIDERS: PCP Physician Assistant; Visit Provider Obstetrics & Gynecology
DX: N93.8 Other specified abnormal uterine and vaginal bleeding (principal)
CPT/HCPCS: 36415; 83001; 84146; 84443

== ENCOUNTER 2025-01-11 02:19 | Outpatient (CLI) | payer BC, SELFPAY ==
--- NOTE | 2025-01-11 07:33 | DI.MAMMO_ITS ---
Exam(s) MAMMO SCREENING EXAM: MAMMO SCREENING CLINICAL HISTORY: screening,z12.39,baseline. TECHNIQUE: Bilateral full field digital CC and MLO mammographic images were obtained with 3D tomosynthesis and utilizing computer aided detection (CAD). COMPARISON: This is a baseline mammogram on a 44-year-old FINDINGS: There is a group of microcalcifications in the central right breast which requires further study with spot Mag views. This is located approximately 10 cm in from the nipple. In addition, there is asymmetric density in the right breast measuring 3 by 1.8 cm on the MLO view, approximately 8 cm in from the nipple on the MLO view and located laterally on the CC view. In the opposite-left breast there is a small group of microcalcifications located 9 cm in from the nipple on the CC view, lateral of center. Require spot views. There is no significant architectural distortion nor skin thickening-retraction. IMPRESSION: Bilateral findings as described above. There is a group of microcalcifications in the central right breast and another group of microcalcifications lateral of center in the left breast. Both require spot Mag views. There is also an asymmetric density in the right breast which requires spot compression views. Complete right breast ultrasound also recommended. BI-RADS Category 0 - Incomplete: Need additional imaging evaluation Breast Density - Category C - The breast are heterogeneously dense, which may obscure small masses. Breast density Category C or D implies that the patient has dense breast tissue. Dense breast tissue can make it harder to find cancer on a mammogram. Dense breast tissue is also associated with an increased risk of breast cancer. This information about the result of the mammogram report was provided to the patient to raise their awareness. Use this report when you speak with the patient about their risks for breast cancer, which includes their family history. At that time, you may recommend additional screening tests (Ultrasound or MRI) as these tests may add significant information. A negative radiographic report should not delay biopsy if a dominant or clinically suspicious mass is present. Up to ten percent of cancers are not identified on mammography. A negative report may reinforce clinical impression. Adenosis and dense breasts may obscure an underlying neoplasm. False positive reports average 6 to 10%. Patient will receive a letter notifying them of these results.
== END 2025-01-11 02:39 ==
LOC: DI 02:19
PROVIDERS: PCP Physician Assistant; Visit Provider Obstetrics & Gynecology
DX: Z12.31 Encounter for screening mammogram for malignant neoplasm of breast (principal)
CPT/HCPCS: 77063; 77067

== ENCOUNTER 2025-01-19 05:52 | Outpatient (CLI) | payer BC, SELFPAY ==
--- NOTE | 2025-01-19 | DI.US_ITS ---
Exam(s) US BREAST RT COMPLETE MG MAMMO SCREEN CALL BACK BI EXAM: MG MAMMO SCREEN CALL BACK BI CLINICAL HISTORY: R92.8 Abn mammo, group microcalcifications in central RT breast and lateral. TECHNIQUE: Cc and MLO spot magnification mammography views of the bothbreasts were performed. Spot compression CC and MLO views of the right breast with Tomosynthesis followed by right breast ultrasound. COMPARISON: US US BREAST RT LIMITED from 04/13/2019 US US BREAST RT COMPLETE from 01/19/2025 FINDINGS: RIGHT BREAST: Spot magnification mammography/Tomosynthesis: Masses/Architectural Distortion: Smoothly marginated low-density lesion in the lateral right breast has decreased in size significantly compared to 2020 and represent a hamartoma or fibroadenoma. Microcalcifictions: There are numerous loosely clustered calcifications over an area of 2 cm in the 12 o'clock position of the right breast which have a pleomorphic appearance. Skin Thickening/Nipple Retraction: None. Right breast US: Echotexture: Normal appearance of the glandular tissue. Shadowing: No suspicious foci. Cyst: None. Solid lesions: Circumscribed mixed echogenicity solid lesion in the 9 o'clock position which blends in with the fibroglandular tissue and may represent a fibroadenoma or fibroadenolipoma. This is the same lesions which was seen on the previous exam but has decreased significantly in size. Ductal dilation: None. Axilla: Normal appearing lymph nodes. LEFT BREAST: Spot magnification views: Masses/Architectural Distortion: None seen. Microcalcifictions: No suspicious pleomorphic-type are seen. Loosely scattered benign appearing calcifications in the lateral portion of the breast. Skin Thickening/Nipple Retraction: None. IMPRESSION: 1. Right breast: Suspicious calcifications in the 12 o'clock position. 2. Left breast: No evidence of malignancy is noted. 3. Unless there is more urgent need, follow-up screening mammography is recommended, as per [employer] [employer] guidelines. 4. The findings were discussed with the patient on the date of the examination. 5. The findings were called to Dr. Smallwood. BI-RADS Category 4 - Suspicious Abnormality: Biopsy should be considered Breast Density - Category B - There are scattered areas of fibroglandular density. Breast density Category C or D implies that the patient has dense breast tissue. Dense breast tissue can make it harder to find cancer on a mammogram. Dense breast tissue is also associated with an increased risk of breast cancer. This information about the result of the mammogram report was provided to the patient to raise their awareness. Use this report when you speak with the patient about their risks for breast cancer, which includes their family history. At that time, you may recommend additional screening tests (Ultrasound or MRI) as these tests may add significant information. A negative radiographic report should not delay biopsy if a dominant or clinically suspicious mass is present. Up to ten percent of cancers are not identified on mammography. A negative report may reinforce clinical impression. Adenosis and dense breasts may obscure an underlying neoplasm. False positive reports average 6 to 10%. Patient will receive a letter notifying them of these results.
== END 2025-01-19 06:12 ==
LOC: DI 05:52
PROVIDERS: PCP Physician Assistant; Visit Provider Obstetrics & Gynecology
DX: Z12.31 Encounter for screening mammogram for malignant neoplasm of breast (principal)
CPT/HCPCS: 76642; 77063; 77067